=== PATIENT | male | born 1975 | race Caucasian/White ===

== ENCOUNTER 2022-06-17 07:00 | Outpatient (CLI) | payer OTHER ==
--- NOTE | 2022-06-17 19:25 | XRAY Report ---
PROCEDURE: Chest 2 View X-Ray INDICATIONS: FEVER OF UNKNOWN ORIGIN TECHNIQUE: 2 views of the chest were acquired. COMPARISON: None FINDINGS: Surgical changes and devices: None. Lungs and pleura: Left upper lobe lingular pulmonary infiltrate, consistent with pneumonia. Right collin g and both pleural spaces clear. Mediastinum: Mediastinal contours are normal. Heart size is normal. Bones and chest wall: No suspicious bony abnormalities. Soft tissues appear unremarkable. IMPRESSION: Left upper lobe pulmonary infiltrate, consistent with pneumonia Reviewed by: Clifton Hernandez MD on 06/17/2022 6:24 PM [place] Approved by: Clifton Hernandez MD on 06/17/2022 6:24 PM [facility] Station ID: [id number]
== END 2022-06-17 07:01 | disposition home or self-care (01) ==
LOC: DI.S 07:00
PROVIDERS: ATTEND Nurse Practitioner
DX: R91.8 Other nonspecific abnormal finding of lung field (principal)

== ENCOUNTER 2024-02-07 07:33 | Outpatient (CLI) | payer BC ==
[2024-02-07 15:43] LABS: BASOPHILS # (AUTO) 0.1 10^3/uL (0.0-0.1); BASOPHILS % (AUTO) 0.5 %; EOSINOPHILS # (AUTO) 0.3 10^3/uL (0.0-0.7); EOSINOPHILS % (AUTO) 3.1 %; HCT - HEMATOCRIT 46.2 % (42.0-52.0); HGB - HEMOGLOBIN 15.3 g/dL (14.0-18.0); LYMPHOCYTES # (AUTO) 3.7 10^3/uL (1.5-3.5); LYMPHOCYTES % (AUTO) 36.4 %; MEAN CORPUSCULAR HEMOGLOBIN 29.5 pg (27.0-31.0); MEAN CORPUSCULAR HGB CONC 33.1 g/dL (32.0-36.0); MEAN CORPUSCULAR VOLUME 89.2 fL (80.0-94.0); MEAN PLATELET VOLUME 11.1 fL (7.4-11.4); MONOCYTES # (AUTO) 0.7 10^3/uL (0.0-1.0); MONOCYTES % (AUTO) 6.5 %; NEUTROPHILS # (AUTO) 5.4 10^3/uL (1.5-6.6); NEUTROPHILS % (AUTO) 53.3 %; PLT - PLATELET COUNT 306 10^3/uL (130-450); RED BLOOD COUNT 5.18 10^6/uL (4.70-6.10); RED CELL DISTRIBUTION WIDTH 13.4 % (12.0-15.0); WHITE BLOOD COUNT 10.2 x10^3/uL (4.8-10.8)
[2024-02-07 16:32] LABS: ALBUMIN 4.6 g/dL (3.2-5.5); ALBUMIN/GLOBULIN RATIO 1.6 (1.0-2.2); ALKALINE PHOSPHATASE 62 IU/L (42-121); ALT ALANINE AMINOTRANSFERASE 22 IU/L (10-60); AST ASPARTATE AMINOTRANSFERASE 12 IU/L (10-42); BILIRUBIN,TOTAL 0.4 mg/dL (0.2-1.0); BUN - BLOOD UREA NITROGEN 13 mg/dL (6-20); CALCIUM 9.8 mg/dL (8.5-10.3); CARBON DIOXIDE - CO2 25 mmol/L (21-32); CHLORIDE 106 mmol/L (101-111); CHOL/HDL RATIO 6.2 (<5.0); CHOLESTEROL 206 mg/dL; CREATININE 0.8 mg/dL (0.6-1.3); GFR - MDRD 103 (>89); GLUCOSE 101 mg/dL (74-104); HDL CHOLESTEROL 33 mg/dL; LDL CHOLESTEROL,CALCULATED 125 mg/dL; LDL/HDL RATIO 3.8 (<3.6); POTASSIUM 4.4 mmol/L (3.5-4.5); SODIUM 138 mmol/L (135-145); TOTAL PROTEIN 7.4 g/dL (6.4-8.9); TRIGLYCERIDES 238 mg/dL; VLDL CHOLESTEROL 48 mg/dL
[2024-02-07 16:38] LABS: THYROID STIMULATING HORMONE 1.45 uIU/mL (0.34-5.60)
[2024-02-07 17:46] LABS: ESTIMATED AVERAGE GLUCOSE 117 mg/dL (70-100); HEMOGLOBIN A1c% 5.7 % (4.27-6.07)
[2024-02-08 04:09] LABS: VITAMIN D 25-HYDROXY 63.2 ng/mL (30.0-100.0)
== END 2024-02-07 07:34 | disposition home or self-care (01) ==
LOC: LAB.S 07:33
PROVIDERS: ATTEND Nurse Practitioner Gerontology
DX: Z00.00 Encounter for general adult medical examination without abnormal findings (principal); R19.7 Diarrhea, unspecified
CPT/HCPCS: 36415; 80053; 80061; 82306; 83036; 83721; 84443; 85025; 87045; 87046; 87177; 87209; 87329; 87338; 87427

== ENCOUNTER 2024-02-17 11:14 | Emergency (ER) | payer BC ==
[2024-02-17 11:51] LABS: BILIRUBIN,URINE NEGATIVE (NEGATIVE); GLUCOSE, URINE (UA) NEGATIVE (NEGATIVE); KETONES,URINE (UA) NEGATIVE (NEGATIVE); LEUKOCYTE ESTERASE, URINE SMALL (NEGATIVE); NITRITE,URINE NEGATIVE (NEGATIVE); OCCULT BLOOD,URINE NEGATIVE (NEGATIVE); PROTEIN,URINE NEGATIVE (NEGATIVE); UROBILINOGEN,URINE 0.2 (NORMAL) E.U./dL (NORMAL)
[2024-02-17 11:53] LABS: CLARITY,URINE HAZY (CLEAR)
[2024-02-17 11:56] LABS: BACTERIA,URINE Rare /HPF (None Seen); RBC,URINE None Seen /HPF (0-5); SQUAMOUS EPITHELIAL CELL,UR NONE SEEN (<= Few)
--- NOTE | 2024-02-17 12:35 | ED Physician Documentation ---
History of Present Illness - Stated complaint Stated Complaint: LT SIDE GROIN PX - Chief complaint Chief Complaint: General - Additonal information Additional information: 48-year-old male with no pertinent past medical history presents emergency department for left testicular pain. Patient says that the pain started yesterday around 3 or 4:00 and has progressively gotten worse he now feels like it is radiating to his inner thigh and to his left kidney/left thoracic region. He has no new sexual partners and has not sexually active. He says that pain actually improves with urination no fevers or chills no penile discharge no history of STDs. PD PAST MEDICAL HISTORY - Past Medical History Past Medical History: Yes Psych: Depression, Schizophrenia - Past Surgical History Past Surgical History: Yes HEENT: Other - Present Medications Home Medications: Ambulatory Orders Medication Instructions Recorded Confirmed Cefuroxime Axetil [Cefuroxime] 500 mg PO BID 7 Days #14 tablet 02/17/24 - Allergies Allergies/Adverse Reactions: Allergies Allergy/AdvReac Type Severity Reaction Status Date / Time No Known Drug Allergies Allergy Verified 02/17/24 11:35 - Social History Does the pt smoke?: No Smoking Status: Never smoker Does the pt drink ETOH?: No Substance Use and Type: Marijuana - Immunizations Immunizations are current?: Yes PD ED PE NORMAL - Vitals Vital signs reviewed: Yes - General General: Alert and oriented X 3, No acute distress, Well developed/nourished - Abdomen Abdomen: Normal bowel sounds, Soft, Non tender, Non distended, No organomegaly - Back Back: No CVA TTP - Derm Derm: Normal color, Warm and dry, No rash Results - Vitals Vitals: Vital Signs - 24 hr 02/17/24 02/17/24 02/17/24 11:25 12:23 14:22 Temperature 36.7 C 36.5 C Heart Rate 73 63 72 Respiratory 16 18 Rate Blood Pressure 131/84 H 127/83 H 136/85 H O2 Saturation 98 93 96 Oxygen O2 Source Room air - Labs Labs: Laboratory Tests 02/17/24 11:45 Urine Color YELLOW Urine Clarity HAZY Urine pH 6.0 Ur Specific Jennings 1.010 Urine Protein NEGATIVE Urine Glucose (UA) NEGATIVE Urine Ketones NEGATIVE Urine Occult Blood NEGATIVE Urine Nitrite NEGATIVE Urine Bilirubin NEGATIVE Urine Urobilinogen 0.2 (NORMAL) Ur Leukocyte Esterase SMALL H Urine RBC None Seen Urine WBC 6-10 H Ur Squamous Epith Cells NONE SEEN Urine Bacteria Rare Ur Microscopic Review INDICATED Urine Culture Comments INDICATED - Rads (name of study) Testicular ultrasound Relevant Findings:: Final report received, EMP independent interpretation of test, Other (No evidence of testicular torsion or infection bilateral hydrocele) PD Medical Decision Making - ED course ED course: 48-year-old male presents emergency department for left testicular pain. Differentials include but are not limited to UTI, renal calculi, testicular to rsion, epididymitis. Ultrasound was complete for further evaluation and no acute abnormalities were found and no acute infectionOr testicular torsion. Urinalysis Does not indicate any hematuria make me less suspicious for possible renal calculi he did test positive for leukocytosis and so patient was started on cefuroxime here in the emergency department Toradol was given for pain which he reports minimal to no relief. Prescription of cefuroxime was sent to patient's preferred pharmacy he was notified that we will call him in a few days if he needs to change antibiotics based on urine cultures and to follow-up with urology. Urology contact information was given to the patient and patient reports that he has a follow-up appoint with his primary care or provider on Wednesday that he can get a referral for if needed as well as get reevaluation if needed. All questions answered return precautions given patient safe for discharge at this time. Departure - Departure Disposition: 01 Home, Self Care Clinical Impression: Hydrocele in adult, UTI (urinary tract infection) Instructions: ED Hydrocele Type Not Specified, ED UTI Cystitis Male Follow-Up: Demetrius Mendes MD [Provider Admit Priv/Credential] - Prescriptions: Cefuroxime Axetil [Cefuroxime] 500 mg PO BID 7 Days #14 tablet Comments: Thank you for trusting us with your care. We have sent a prescription of cefuroxime to your preferred pharmacy [facility] in [place] you do appear to have a urinary tract infection as well as something called a hydrocele. I would like you to follow-up with your primary care provider and let them know about today's ER visit as well as urology outpatient for further evaluation. Often times you need a referral from your primary care provider so do not forget to bring this up to them at your appointment on Wednesday. Please come back in if you are starting develop any fevers or chills, nausea, vomiting, or any other emergent concerning symptoms. Wishing you a speedy recovery. Forms: PCP List Discharge Date/Time: 02/17/24 14:26
[2024-02-17] MEDS: KETOROLAC 30 MG/ML VIAL IM STA (12:53)
--- NOTE | 2024-02-17 13:57 | Ultrasound Report ---
PROCEDURE: Testicle w/Doppler INDICATIONS: left testicular torsion TECHNIQUE: Real-time scanning was performed of the scrotum and testicles, with image documentation. Color and p ulse Doppler interrogation was performed of both testicles. COMPARISON: None. FINDINGS: Right: Testicle is normal in size at 5.0 x 2.3 x 3.5 cm, and homogenous in echotexture. Epididymis is normal in overall size and morphology. Trace hydrocele. No varicoceles. Overlying scrotal skin i s normal in thickness. Left: Testicle is normal in size at 4.8 x 2.7 x 2.4 cm, and homogeneous in echotexture. Epididymis is normal in overall size and morphology. Trace hydrocele. No varicoceles. Overlying scrotal skin i s normal in thickness. Doppler: Color and pulse Doppler demonstrate normal and symmetric arterial flow in both testicles. IMPRESSION: No evidence of infection or torsion. Reviewed by: Miguel Ángel Harper MD on 02/17/2024 1:56 PM PDT Approved by: Miguel Ángel Harper MD on 02/17/2024 1:56 PM PDT Station ID: [id number]
[2024-02-17] MEDS: cefuroxime axetiL 250 MG TABLET PO STA (14:19)
[2024-02-17 14:25] VITALS: BP 136/85; O2SAT 96
== END 2024-02-17 14:26 | disposition home or self-care (01) ==
LOC: ED 11:14
DX: N43.3 Hydrocele, unspecified (principal); N39.0 Urinary tract infection, site not specified
CPT/HCPCS: 76870; 81001; 87086; 93975; 96372; 99283; 99284; A9270; 81003